=== PATIENT | female | born 1965 | race African-American/Black ===

== ENCOUNTER 2020-11-30 08:14 | Day surgery (SDC) | payer OTHER ==
[2020-11-30 08:15] LABS: Urine Appearance CLEAR (Clear); Urine Bilirubin NEGATIVE (Negative); Urine Blood NEGATIVE (Negative); Urine Color YELLOW (Yellow); Urine Glucose NEGATIVE (Negative); Urine Protein NEGATIVE (Negative); Urine Urobilinogen 0.2 mg/dL (0.2-1.0)
[2020-11-30 08:16] LABS: Urine Microscopic Reflex NO UMIC
--- NOTE | 2020-11-30 08:37 | RAD REPORT ---
EXAM DESCRIPTION: Laisha Vincent (2 Views)11/30/2020 8:16 am CLINICAL HISTORY: Preop for breast surgery COMPARISON: None FINDINGS: The lungs appear clear of acute infiltrate. The heart is normal size IMPRESSION: No acute abnormalities displayed
[2020-11-30] MEDS ORDERED: CEFAZOLIN/SWI 1gm 1 GM/10 ML SYR ONE (09:00)
[2020-11-30] MEDS ORDERED: SCOPOLAMINE HYDROBROMIDE PATCH TD ONE (09:00)
[2020-11-30] MEDS ORDERED: Ringers Lactate 1,000 ML IV ONE ×3 (09:00→09:02)
[2020-11-30] MEDS ORDERED: LIDOCAINE 1% W/EPI 1:100,000 MDV 20 ML VIAL ONE (09:01)
[2020-11-30] MEDS ORDERED: CEFAZOLIN SODIUM 1 GM/VIAL ONE (09:01)
[2020-11-30] MEDS ORDERED: NS 0.9% VIAL 30 ML ONE (09:01)
[2020-11-30] MEDS ORDERED: GENTAMICIN SULF 80 MG/2ML INJ ONE (09:01)
[2020-11-30] MEDS ORDERED: Mastisol Adhesive Liq ONE (09:02)
[2020-11-30] MEDS ORDERED: MIDAZOLAM HCL 2 MG/2 ML INJ ONE (10:28)
[2020-11-30] MEDS ORDERED: propofoL 200 MG/20 ML VIAL IV ONE (10:28)
[2020-11-30] MEDS ORDERED: FENTANYL CITR 250 MCG/5 ML ONE (10:29)
[2020-11-30] MEDS ORDERED: NS 0.9% VIAL 10 ML ONE ×2 (10:29)
[2020-11-30] MEDS ORDERED: VECURONIUM 10 MG/VIAL IV ONE ×2 (10:29→10:33)
[2020-11-30] MEDS ORDERED: LIDOCAINE 1% MPF 5 ML VIAL ONE (10:29)
[2020-11-30] MEDS ORDERED: ONDANSETRON 4 MG/2 ML VIAL ONE ×2 (10:29→14:29)
[2020-11-30] MEDS ORDERED: dexAMETHasone 10 MG/ML VIAL ONE (10:29)
[2020-11-30] MEDS ORDERED: LANO/MINERAL OIL/PETRO 3.5 GM ONE (10:32)
[2020-11-30] MEDS ORDERED: GLYCOPYRROLATE 0.2 MG/ML SYR ONE (14:28)
[2020-11-30] MEDS ORDERED: KETOROLAC 30 MG/ML INJ ONE (14:29)
[2020-11-30] MEDS ORDERED: NEOSTIGMINE 1 MG/ML -5 ML ONE (14:29)
[2020-11-30] MEDS ORDERED: FENTANYL CITR 100 MCG/2 ML ONE ×2 (14:42→15:12)
[2020-11-30] MEDS: HYDROMORPHONE HCL 1 MG/ML INJ ONE ×2 (15:32→15:37)
--- NOTE | 2020-11-30 16:06 | OP ---
Surgeon: Tommie Velasco MD Preoperative Diagnosis: Breast descent. Postoperative Diagnosis: Breast descent. Procedure Performed: Breast lift. Anesthesia: General. Procedure In Detail: After satisfactory induction of general anesthesia, the chest was prepped with DuraPrep, dry sterile drapes were applied in the usual manner. A 5 cm template was applied around ea ch areola. Then, the transverse curvilinear incision was made intervening skin was de-epi thelialized with dermabrader and tenotomy scissors. A transverse incision was made in the right nahun st first. The flap was thickened approximately a 1.5 cm, elevated from the sternum, clavicle, anteri or axillary line. After this was done, then the inferior incision was made, and the intervening ____ formed with a cone after the tissue was removed laterally. Conization was performed with 2-0 PDS suture. Straps were elevated on the right breast at 12 o'clock, 1:30 [address] raps were then woven in and out of the pectoralis muscle, back to base of cone, back to the pectorali s muscle, back to base of cone, tied themselves with 2-0 PDS suture. This was done for the 12 o'cloc k 1:30 strap. The 3 o'clock strap was sewn over the sternum at 3 o'clock position with 2-0 Ethibond. Left side done in identical manner and the patient was sat up. The wounds were temporary closed, c ompared symmetry, and the dog ears were marked out. The patient returned supine. Dog ears were exci sed. Wound was irrigated with antibiotic solution. A 10 RADHA brought out of the axilla, sewn with 2 0 silk, and then the wounds were closed with 3-0 Vicryl subcu and then 3-0 PDS running subcuticular ti ed for medial and lateral, lateral and medial, tied in the vertical meridian of the breast. Left dali e done in identical manner. The patient was sat up. Site for new nipple-areolar complex was marked o ut. The patient returned supine. Tissue was cored out with a 5 cm template. Nipple-areolar complex delivered and sewn with interrupted 4-0 PDS followed by 4-0 PDS running subcuticular. Dressings con sisted of tincture of benzoin, Steri-Strips followed by Esmarch, fluffs, and Kalen wrap. The patient t olerated the procedure well. 106 g removed from right, 110 from the left. RANJIT/TRACY Voice ID: [id number] Report ID: [id number]
--- NOTE | 2020-11-30 16:12 | EKG ---
Test Date: 2020-11-30 Test Time: 06:58:37 Outbound Telemarketing Representative: MICHELLE MEASUREMENT RESULTS: Intervals: Rate: 56 PA: 166 QRSD: 96 QT: 452 QTc: 436 [place]: P: 72 PA: 166 QRS: 81 T: 70 INTERPRETIVE STATEMENTS: Sinus bradycardia with sinus arrhythmia Otherwise normal ECG No previous ECG available for comparison Electronically Signed On 11-30-20 16:11:35 CDT by Sergei Estrada
[2020-11-30] MEDS ORDERED: CODEINE 30MG/APAP 300MG TAB ONE (16:37)
[2020-11-30 17:52] VITALS: BP 154/74; TEMP 97.4; O2SAT 100
== END 2020-11-30 17:45 | disposition home or self-care (01) ==
LOC: OR 08:14
PROVIDERS: ATTEND Specialist
PROC: 0HSV0ZZ Reposition Bilateral Breast, Open Approach (ICD-10-PCS; principal; 2020-11-30 09:00)
DX: N64.81 Ptosis of breast (principal)
CPT/HCPCS: 93005; 88305; 81003; 71046; 19316; J2704; J1580; J2250; J3010 ×3; J1100; J1170; J2710; J0690 ×2; J7120 ×3; J2405 ×2